=== PATIENT | male | born 1970 | race Caucasian/White ===

== ENCOUNTER 2019-05-28 05:58 | Day surgery (SDC) | payer OTHER ==
[~2019-05-28] VITALS: Ht 165.1 cm; Wt 88.2 kg
[2019-05-28] VITALS (14 sets, daily range): BP systolic 126–183; BP diastolic 83–112; PULSE 72–88; RESP 16–24; Ht 165.1 cm; Wt 88.2 kg
[2019-05-28] MEDS ORDERED: SOD CHLORIDE 0.9% 1,000 ML IV SCH (06:00)
[2019-05-28] MEDS ORDERED: CEFAZOLIN 2 GM/50 ML (PMX) 50 ML IVPB SCH (06:00)
[2019-05-28] MEDS ORDERED: BUPIVACAINE 0.25% (MPF) 30 ML INJ ONE (07:45)
[2019-05-28] MEDS ORDERED: POLYMYXIN/BACITRACIN 1L IRRIG ONE (07:45)
--- NOTE | 2019-05-28 07:53 | PREAC ---
Date/Time of Note Date/Time of Note DATE: 05/28/19 TIME: 07:52 Anesthesia Eval and Record Evaluation Time Pre-Procedure Interview DATE: 05/28/19 TIME: 07:52 Age 48 Sex male NPO: 8 hrs Preoperative diagnosis ventral hernia Planned procedure laparoscopic ventral hernia repair with mesh Past Medical History Past Medical History: Includes Cardio: HTN (patient doesn't take any meds - trying to control with diet ) GI: Obesity Surgery & Anesthesia Issues No known issue Meds Anticoagulation: No Beta Nancy within 24 hr: No Reason Beta Nancy not given: Pt. not on B-Nancy No Active Prescriptions or Reported Meds Current Medications Cefazolin Sodium/ Dextrose 50 ml @ 100 mls/hr ONCE IVPB ; Start 05/28/19 at 06:00; Stop 05/28/19 at 11:00 Sodium Chloride 1,000 ml @ 75 mls/hr [id number] IV Last administered on 05/28/19at 07:16; Admin Dose 75 MLS/HR; Start 05/28/19 at 06:00 Meds reviewed: Yes Allergies Coded Allergies: No Known Allergy (Unverified , 05/27/19) Allergies Reviewed: Yes Labs/Studies Labs Reviewed: Reviewed by anesthesiologist Result Diagram: 05/28/19 0651 05/28/19 0651 Laboratory Tests 05/28/19 06:51 test: N/A Pre-procedure Exam Last vitals Vital Signs Date Temp Pulse Resp B/P (MAP) Pulse Ox O2 O2 Flow FiO2 Time Delivery Rate 05/28/19 97.6 82 18 169/95 97 Room Air 06:57 (119) Airway: Adequate mouth opening, Adequate thyromental dist Mallampati: Mallampati II Teeth: Normal Lung: Normal Heart: Normal ASA Physical Status ASA physical status: 2 Emergency: None Planned Anesthetic General/MAC: ETT Nerve block: TAP (bilateral) Planned Pain Management Single shot nerve block, Parenteral pain med Pre-operative Attestations Prior to commencing anesthesia and surgery, the patient was re-evaluated, there was verification of: *The patient's identity *The results of appropriate recent lab work and preoperative vital signs *The above evaluation not changing prior to induction *Anesthetic plan, risk benefits, alternative and complications discussed with patient/family; questions answered; patient/family understands, accepts and wishes to proceed. TROY ARELLANO MD May 28, 2019 07:53
[2019-05-28] MEDS ORDERED: LIDOCAINE 2% (SDV) 5 ML INJ ONE (08:07)
[2019-05-28] MEDS ORDERED: ROCURONIUM 50 MG INJ ONE ×2 (08:07→08:39)
[2019-05-28] MEDS ORDERED: SUCCINYLCHOLINE CHLORIDE 100 MG/5 ML SYG IV ONE (08:07)
[2019-05-28] MEDS ORDERED: PROPOFOL 20 ML ONE ×2 (08:07→08:39)
[2019-05-28] MEDS ORDERED: MIDAZOLAM 1 MG/ML 2 ML INJ ONE (08:07)
[2019-05-28] MEDS ORDERED: ROPIVACAINE 0.5 % 30 ML VIAL ONE (08:14)
[2019-05-28] MEDS ORDERED: FENTAnyl 50 MCG/ML VIAL ONE (08:28)
[2019-05-28] MEDS ORDERED: FAMOTIDINE 20 MG INJ ONE (08:36)
[2019-05-28] MEDS ORDERED: ONDANSETRON 4 MG INJ ONE (08:36)
[2019-05-28] MEDS ORDERED: DEXAMETHASONE 4 MG/ML 5 ML INJ ONE (08:36)
[2019-05-28] MEDS ORDERED: CEFAZOLIN 1 GM INJ ONE (08:39)
[2019-05-28] MEDS ORDERED: GLYCOPYRROLATE 0.4 MG INJ ONE ×2 (09:11→09:18)
[2019-05-28] MEDS ORDERED: NEOSTIGMINE 3 MG/3 ML SYRINGE ONE ×2 (09:11→09:18)
[2019-05-28] MEDS ORDERED: LABETALOL HCL 20MG INJ ONE (09:16)
[2019-05-28] MEDS ORDERED: SUGAMMADEX SODIUM 200 MG/2 ML VIAL IV ONE (09:20)
--- NOTE | 2019-05-28 09:23 | OPR ---
Date/Time of Note Date/Time of Note DATE: 05/28/19 TIME: 09:20 Operative Report Procedure Date: May 28, 2019 Preoperative Diagnosis incarcerated ventral hernia Postoperative Diagnosis same Operation/Procedure Performed 1. laparoscopic incarcerated ventral hernia repair 2. implantation of 15 x 15 cm polypropylene mesh 3. laparoscopic lysis of adhesions Surgeon see signature line Civil Preparedness Coordinator Devyn Dominguez Anesthesia Type: general Estimated Blood Loss: 0 - 10 ml's Transfusion none Specimen none Grafts/Implants none Complications none Pt Condition Post Procedure: stable Indications This is a 48-year-old male with an incarcerated ventral hernia. He requires surgical repair. Risks alternatives benefits and personal were discussed the patient. Patient expressed understanding and consents to the operation. Procedure Description Patient is taken to the OR and prepped and draped in usual sterile fashion. Surgical time was performed. IV antibiotics given. Left upper quadrant 5 mm transverse incision is made with a 15 blade. Using a 5 mm optical trocar optical entry is performed. Pneumoperitoneum is established. Left flank 12 mm optical trocar and left lower quadrant 5 mm optical trochars placed under direct visualization. Upon initial inspection there is incarcerated hernia. Laparoscopic lysis of adhesions was performed to get to the incarcerated hernia. Meticulous dissection was performed to allow identification of the fascial edges. The incarcerated contents were examined and further lysis of adhesions performed allowing manual reduction of the hernia contents. The fascial defect was identified. Using Endo Close and laparoscopic techniques interrupted #1 Vicryl was placed to close the hernia defect. After the defect was closed 15 x 15 cm polypropylene mesh was then placed with secure strap as an underlay mesh. Approximate 45 cm of coverage in all directions were ensured. Good hemostasis s tatus. All ports removed under direct visualization. Skin was closed and skin melodie. A tap block was provided by the anesthesiologist. Dry dressings were applied. Glenna MENDOZA May 28, 2019 09:23
[2019-05-28] MEDS ORDERED: HYDROCODONE/APAP (5/325) TAB PO ONE (09:30)
[2019-05-28] MEDS ORDERED: hydrALAzine 20 MG INJ ONE (09:32)
[2019-05-28] MEDS ORDERED: hydrALAzine 20 MG INJ IV PRN (10:00)
[2019-05-28] MEDS ORDERED: PROCHLORPERAZINE 10 MG INJ IV PRN (10:00)
[2019-05-28] MEDS ORDERED: FENTAnyl 50 MCG/ML VIAL IV PRN ×3 (10:00)
[2019-05-28] MEDS ORDERED: MEPERIDINE 25 MG INJ IV PRN (10:00)
[2019-05-28] MEDS ORDERED: DIPHENHYDRAMINE 50 MG INJ IV PRN (10:00)
[2019-05-28] MEDS ORDERED: HYDROmorphONE 1 MG/5 ML IV SYRINGE IV PRN ×3 (10:00)
[2019-05-28] MEDS ORDERED: LABETALOL HCL 20MG INJ IV PRN (10:00)
[2019-05-28] MEDS ORDERED: OXYCODONE/ACETAMINOPHEN (5/325) TAB PO PRN (10:00)
[2019-05-28] MEDS ORDERED: ONDANSETRON 4 MG INJ IV PRN (10:00)
--- NOTE | 2019-05-28 10:22 | PAC ---
Date/Time of Note Date/Time of Note DATE: 05/28/19 TIME: 10:21 Post-Anesthesia Notes Post-Anesthesia Note Last documented vital signs Vital Signs Date Temp Pulse Resp B/P (MAP) Pulse Ox O2 O2 Flow FiO2 Time Delivery Rate 05/28/19 88 18 140/87 98 Room Air 10:04 (104) 05/28/19 09:44 05/28/19 98.0 09:28 Activity: WNL Respiratory function: WNL Cardiovascular function: WNL Mental status: Baseline Pain reasonably controlled: Yes Hydration appropriate: Yes Nausea/Vomiting absent: Yes TROY ARELLANO MD May 28, 2019 10:22
== END 2019-05-28 11:30 | disposition home or self-care (01) ==
LOC: SDS 05:58
PROVIDERS: ATTEND Surgery
DX: K43.6 Other and unspecified ventral hernia with obstruction, without gangrene (principal)
CPT/HCPCS: 49653; 80053; 85025; 85610; 85730; J0360; J0690; J1100; J1170; J2250; J2405; J2710; J2795; J3010; Z7512; Z7610